=== PATIENT | male | born 1950 | race Caucasian/White ===

== ENCOUNTER → 2021-11-30 09:22 | Outpatient (CLI) | payer BC, SELFPAY ==
[2021-11-30 11:05] LABS: COVID19 -Nasal RAPID Negative (Negative)
== END ==
PROVIDERS: PCP Family Medicine; Visit Provider Family Medicine Sleep Medicine
DX: Z20.822 Contact with and (suspected) exposure to COVID-19 (principal)
CPT/HCPCS: 87635; C9803

== ENCOUNTER 2021-12-01 06:55 | Day surgery (SDC) | payer BC, SELFPAY ==
[2021-12-01 07:20] VITALS: BP 133/77; PULSE 78; RESP 17; TEMP 36.1; O2SAT 98; BMI 23.6
[2021-12-01] MEDS: SODIUM CHLORIDE 0.9% 1,000 ML 84 ML IV (07:43)
--- NOTE | 2021-12-01 08:33 | PM.HP.1 ---
History of Present Illness History of Present Illness Date Patient Seen: 12/01/21 Chief complaint: SCREENING COLONOSCOPY Patient History Surgical History (Updated 11/30/21 @ 13:28 by Ofelia Monroy RN) H/O repair of rotator cuff Family & Social History Social History: household members none Tobacco & Substance use: Smoking Status Never smoker alcohol intake frequency holiday/special occasion Substance Use Type does not use Meds Home Medications and Allergies Home Medications Medication Instructions Recorded Confirmed Type hydrochlorothiazide 12.5 mg capsule 12.5 mg 11/30/21 History ibuprofen 400 mg PO BID 11/30/21 12/01/21 History lisinopril 20 mg tablet 20 mg DAILY 11/30/21 12/01/21 History Allergies Allergy/AdvReac Type Severity Reaction Status Date / Time No Known Drug Allergies Allergy Verified 11/30/21 13:30 Exam Vital Signs (past 8 hours): - 12/01/21 07:20 Temperature 97 F L Pulse Rate 78 Respiratory Rate 17 Blood Pressure 133/77 Pulse Oximetry 98 Oxygen Delivery Method Room Air Narrative Exam Narrative: Oropharynx free of lesions Chest clear to auscultation percussion Cardiac exam reveals no S3 or murmur Assessment & Plan Assessment & Plan narrative: For screening colonoscopy. Risks, benefits, alternatives have been explained. Further recommendations to follow. Time Spent With Patient Critical Care time: I spent a total of [] minutes of critical care time on this patient's care today; this time is exclusive of procedural time.
--- NOTE | 2021-12-01 08:34 | PM.OP.COLON ---
Operative Date/Time/Diagnoses Date of procedure: 12/01/21 Pre-op diagnosis: See indication and findings Procedure & Clinicians Study performed: Colonoscopy Indications: 1st screening colonoscopy Surgeon: Emily Brown Procedure Notes Procedure in detail: After informed consent was obtained the patient was placed in left lateral decubitus position. The video colonoscope was introduced the rectum slowly advanced cecum. Preparation was good. On slow withdrawal mucosa was carefully examined. The scope was removed. The patient tolerated procedure well. Blood loss none Complications none Sedation mac Findings 1. Pancolonic diverticulosis 2. Otherwise negative colonoscopy to cecum Mr. Bledsoe should have follow-up colonoscopy in 10 years.
[2021-12-01 08:53] VITALS: BP 109/73; PULSE 78; RESP 18; TEMP 36.9; O2SAT 97
[2021-12-01 08:58] VITALS: BP 107/73; PULSE 72; RESP 15; O2SAT 97
[2021-12-01 09:03] VITALS: BP 115/81; PULSE 74; RESP 10; TEMP 36.6; O2SAT 97
[2021-12-01 09:12] VITALS: BP 118/74; PULSE 71; RESP 16; O2SAT 98
[2021-12-01 09:14] VITALS: BP 130/75; PULSE 87; RESP 16; TEMP 36.9; O2SAT 98
== END 2021-12-01 09:29 | disposition home or self-care (01) ==
PROVIDERS: PCP Family Medicine; Referring Provider Internal Medicine Gastroenterology; Visit Provider Internal Medicine Gastroenterology
PROC: 0DJD8ZZ Inspection of Lower Intestinal Tract, Via Natural or Artificial Opening Endoscopic (ICD-10-PCS; CPT 45378; principal; 2021-12-01 08:30)
DX: Z12.11 Encounter for screening for malignant neoplasm of colon (principal); K57.30 Diverticulosis of large intestine without perforation or abscess without bleeding
CPT/HCPCS: 45378; J2704